=== PATIENT | male | born 1960 | race African-American/Black ===

== ENCOUNTER 2016-10-10 18:04 | Emergency (ER) | payer SELFPAY ==
[~2016-10-10] VITALS: Ht 182.9 cm; Wt 108.9 kg
--- NOTE | ~2016-10-10 | CR169 ---
[facility] A Service of [facility] & [facility] RADIOLOGY TEXT RESULTS PATIENT: KENZIE GARCIA LOCATION: CFT[facility] : 62 UNIT #: [id number] AGE: [address]: Cesar Rosario SEX: M ORDER DR: [id number] [facility] [address] [place], [place] [address] [id number] MR#: [id number] Acc #: [id number] NAME: KENZIE GARCIA : 1960 SEX: M STUDY DATE/TIME: 10/10/2016 20:56 UNIT: [facility] ROOM: STUDY DESCRIPTION: CR Knee 2 Views Lt Attending Physician: Cesar Rosario P.A.-C. Ordering Physician: Cesar Rosario P.A.-C. Primary Care Physician: Primary Care Physician No MEDICAL IMAGING REPORT This report is preliminary unless electronic signature is present EXAM Left knee 2 views HISTORY 56-year-old male left knee pain, limited range of motion, symptoms for 3 weeks. No known trauma. FINDINGS Three views of the left knee demonstrates mild arthritic changes of the knee with spurring the tibial spines. Mild medial joint space narrowing and mild patellofemoral arthrosis. No joint effusion. No fracture. No loose body. IMPRESSION Mild degenerative arthropathy left knee. Dictated by... Dionne Gayle M.D. THIS IS AN ELECTRONICALLY VERIFIED REPORT Dionne Gayle M.D. at 10/11/2016 5:38 PM MANUEL/ray TD: 10/11/2016 09:10 JOB #: [id number] MEDICAL IMAGING REPORT Page 1 of 1 COPY
[~2016-10-10 18:04] MED LIST: MOTRIN600 M2 PO; NORCO1 TAB 10/3 PO
[2016-10-10 20:46] LABS: BASOPHIL% 0.5 % (0-2.5); EOSINOPHIL# 0.1 X10e3 (0-0.7); EOSINOPHIL% 1.7 % (0.0-7.0); HEMATOCRIT 42.4 % (38.0-50.0); HEMOGLOBIN 13.9 gm/dL (13.0-16.0); LYMPHOCYTE# 2.2 X10e3 (1.0-3.5); LYMPHOCYTE% 28.8 % (17.0-45.0); MEAN CELL VOLUME 82.4 FL (83-96); MEAN CORPUSCULAR HEMOGLOBIN 26.9 PG (28-34); MEAN CORPUSCULAR HGB CONC 32.7 g/dL (30-36); MEAN PLATELET VOLUME 8.1 FL (6.5-11.5); MONOCYTE# 0.6 X10e3 (0-1.0); MONOCYTE% 8.3 % (3.0-12.0); NEUTROPHIL# 4.6 X10e3 (1.5-7.1); NEUTROPHIL% 60.7 % (40-75); PLATELET COUNT 170 X10e3 (140-420); RED BLOOD COUNT 5.15 X10e (3.90-5.60); RED CELL DISTRIBUTION WIDTH 14.7 % (11.0-15.5); WHITE BLOOD COUNT 7.5 X10e3 (4.0-10.5)
[2016-10-10 20:49] LABS: DIFF IND NO
[2016-10-10 22:14] LABS: BUN/CREATININE RATIO 16.36; CALCIUM SERUM 9.3 mg/dL (8.4-10.2); CREATININE SERUM 1.1 mg/dL (0.6-1.4); GLOM FILT RATE Estimated 87.1 mL/min (>60); POTASSIUM 3.8 mmol/L (3.5-5.1)
[2016-10-10 22:25] LABS: URIC ACID 4.9 mg/dL (2.6-7.2)
== END 2016-10-10 22:45 | disposition home or self-care (01) ==
LOC: CED 18:04 → CFTX 18:04
PROVIDERS: Physician Assistant
DX: M25.562 Pain in left knee (principal); J02.0 Streptococcal pharyngitis; Z90.49 Acquired absence of other specified parts of digestive tract; Z88.2 Allergy status to sulfonamides; Z79.899 Other long term (current) drug therapy
CPT/HCPCS: 36415; 73560; 80048; 84550; 85025; 85652; 99283